=== PATIENT | male | born 1965 | race Caucasian/White ===

== ENCOUNTER 2017-01-30 08:35 | Emergency (ER) | payer OTHER ==
[~2017-01-30] VITALS: Ht 170.2 cm; Wt 84.8 kg
--- NOTE | 2017-01-30 08:50 | ED UPPER/LOWER EXTREMITY COMPL ---
History of Present Illness General Chief Complaint: Lower Extremity Problems Stated Complaint: R KNEE PAIN, WORK INJURY Source: patient Exam Limitations: no limitations Vital Signs & Intake/Output Vital Signs & Intake/Output Vital Signs Date Time Temp Pulse Resp B/P Pulse O2 O2 Flow FiO2 Ox Delivery Rate 01/30 0857 98 Room Air 01/30 0839 97.0 73 20 119/81 97 Room Air Allergies Coded Allergies: NO KNOWN ALLERGIES (01/05/16) Triage Note: PT TWISTED RIGHT KNEE WHILE KNEELING DOWN AT WORK Triage Nurses Notes Reviewed? yes Onset: Abrupt Duration: constant Timing: single episode today Severity: mild Severity Numbers: 1 HPI: Patient is a 51-year-old male who presents emergency and that while working today he was in the knee bent position on a incline and he'll where he twisted his body where he suddenly complained of sharp stabbing severe right lateral knee pain. Patient did not hear an audible "pop". Denies any direct trauma or fall. Denies any history of right knee pain. No medications given prior to arrival. Patient states that the knee pain has significantly improved and now is complaining of one out of 10 right knee pain. Patient states that deep knee bends and ambulation make worse. Past History Travel History Traveled to [place] past 21 day No Medical History Any Pertinent Medical History? see below for history Gastrointestinal: GERD Surgical History Surgical History: non-contributory Psychosocial History What is your primary language Upper Sorbian Tobacco Use: Quit >30 days ago ETOH Use: occasional use Illicit Drug Use: denies illicit drug use Family History Hx Contributory? No Review of Systems Review of Systems Constitutional: Reports: no symptoms. EENTM: Reports: no symptoms. Respiratory: Reports: no symptoms. Cardiovascular: Reports: no symptoms. Gastrointestinal/Abdominal: Reports: no symptoms. Genitourinary: Reports: no symptoms. Musculoskeletal: Reports: see HPI, joint pain. Skin: Reports: no symptoms. Neurological/Psychological: Reports: no symptoms. Hematologic/Endocrine: Reports: no symptoms. Immunological: Reports: no symptoms. All Other Systems: Reviewed and Negative Physical Exam Physical Exam General Appearance: no apparent distress, alert, comfortable Neurologic/Tendon: normal sensation, normal motor functions, normal tendon functions, responds to pain, no evidence tendon injury Comments: Well-developed well-nourished no apparent distress. HEENT: Atraumatic, extraocular motion intact Neck: Supple, no lymphadenopathy Back: Nontender Respiratory: No respiratory distress Extremities: Right hip nontender full active range of motion Right knee normal inspection lateral meniscal WINDOW AND joint line point tenderness full active range of motion full resisted range of motion noted with flexion and extension. Negative valgus stress test negative varus stress test negative anterior drawer test negative posterior drawer test Right ankle nontender normal inspection Right lower extremity dermatomes intact pedal pulse +2 Neuro: Alert and oriented x3 Psych: Mood affect normal, normal memory normal judgment. Progress Differential Diagnosis: arterial insufficiency, compartment syndrome, contusion, dislocation, DVT, fracture, gout, septic arthritis, sprain, tendon injury Plan of Care: Orders Procedure Date/time Status XRY-KNEE COMPLETE RIGHT 01/31 856 Active Patient declined pain medications when offered Patient had normal steady gait on discharge. No osseous injury noted from acute findings on x-rays. Patient was strongly advised to follow up with orthopedic doctor. Patient had no laxity on ligamentous stress test exam (GHANSHYAM CHAVEZ,ALISON) Diagnostic Imaging: Viewed by Me: Radiology Read. Radiology Impression: no acute abnormality Comments: PATIENT: SAMUEL HAY PRESENT AGE: 51 PATIENT ACCOUNT NO: [id number] : 67 LOCATION: [facility] ORDERING PHYSICIAN: ALISON CHAVEZ SERVICE DATE: 01/30/17 EXAM TYPE: RAD - XRY-KNEE COMPLETE RIGHT EXAMINATION: XR KNEE, RIGHT CLINICAL INFORMATION: Right knee pain. COMPARISON: Right knee 11/02/2008 TECHNIQUE: Four views of the right knee. FINDINGS: There is no visible acute fracture, dislocation or bony erosive changes. There is mild lateral the talar spurring. The tricompartment joint space is maintained. There are no loose bodies or suprapatellar joint effusion. IMPRESSION: Small lateral patellar spur probably from previous injury or early degenerative changes. No visible acute fracture, dislocation or loose bodies seen. Departure Departure Disposition: HOME OR SELF CARE Condition: Stable Clinical Impression Primary Impression: Right knee pain Referrals: MAGO CAVANAUGH,VICTORINO HO MD,MARIANO Bowman (PCP/Family) Additional Instructions: As discussed begin icing the area directly 20 minutes every 2 hours. Begin over -the-counter ibuprofen if needed for pain and inflammation. If no better in one week follow-up with orthopedic Victorino Kenney MD. If symptoms worsen return to emergency room Departure Forms: Customer Survey Employee Industrial Accident General Discharge Information
--- NOTE | 2017-01-30 09:39 | RADIOLOGY REPORT ---
EXAMINATION: XR KNEE, RIGHT CLINICAL INFORMATION: Right knee pain. COMPARISON: Right knee 11/02/2008 TECHNIQUE: Four views of the right knee. FINDINGS: There is no visible acute fracture, dislocation or bony erosive changes. There is mild lateral the talar spurring. The tricompartment joint space is maintained. There are no loose bodies or suprapatellar joint effusion. IMPRESSION: Small lateral patellar spur probably from previous injury or early degenerative changes. No visible acute fracture, dislocation or loose bodies seen.
[2017-01-30 10:00] VITALS: BP 126/78
== END 2017-01-30 10:01 ==
LOC: ERH 08:35
DX: M25.561 Pain in right knee (principal); X50.9XXA Other and unspecified overexertion or strenuous movements or postures, initial encounter; Y93.89 Activity, other specified; Y92.89 Other specified places as the place of occurrence of the external cause
CPT/HCPCS: 73562-RT

== ENCOUNTER 2017-03-16 16:17 | Emergency (ER) | payer OTHER ==
[~2017-03-16] VITALS: Ht 172.7 cm; Wt 83.9 kg
[2017-03-16 16:21] VITALS: BP 125/78
[2017-03-16] MEDS ORDERED: IBUPROFEN600 M1 PO (16:49)
--- NOTE | 2017-03-16 16:49 | ED CARDIAC/CP/PALPITATIONS ---
History of Present Illness General Chief Complaint: Trunk Injury Stated Complaint: FALL 2 DAYS AGO, LEFT SIDED RIB PAIN Source: patient, family, old records Exam Limitations: no limitations Vital Signs & Intake/Output Vital Signs & Intake/Output Vital Signs Date Time Temp Pulse Resp B/P B/P Pulse O2 O2 Flow FiO2 Mean Ox Delivery Rate 03/16 1621 97.9 69 18 125/78 96 Room Air Allergies Coded Allergies: NO KNOWN ALLERGIES (01/05/16) Reconcile Medications Ibuprofen 600 MG TABLET 1 TAB PO TID PRN PAIN with food Triage Note: PT TO TRIAGE WITH C/O LEFT SIDED RIB CAGE PAIN 6/10 INCREASING WITH DEEP INSPIRATIONS AND COUGHING S/P TRIPPED AND FELL ON LEFT SIDE 2 DAYS AGO. PT DENIES HEADSTRIKE. VSS. Triage Nurses Notes Reviewed? yes HPI: On Friday patient had a mechanical fall and fell on the left side of his ribs. Patient denies any other injury. Patient denies hitting his head and there was no loss of consciousness. Since the fall he's been having a sharp stabbing pain to his left lateral rib cage that increases with inspiration. He denies any shortness of breath or dyspnea on exertion. There is no radiation of the pain. At its worse the pain is 7 out of 10. There no fevers or chills. There is no coughing. Past History Travel History Traveled to [place] past 21 day No Medical History Any Pertinent Medical History? see below for history Gastrointestinal: GERD Surgical History Surgical History: non-contributory Psychosocial History What is your primary language Czech Tobacco Use: Never used Family History Hx Contributory? No Review of Systems Review of Systems Constitutional: Reports: no symptoms. EENTM: Reports: no symptoms. Respiratory: Reports: no symptoms. Cardiovascular: Reports: see HPI, chest pain. GI: Reports: no symptoms. Musculoskeletal: Reports: no symptoms. Neurological/Psychological: Reports: no symptoms. Immunologic/Allergic: Reports: no symptoms. Physical Exam Physical Exam General Appearance: well developed/nourished, alert, awake Head: atraumatic, normal appearance Eyes: Bilateral: PERRL, EOMI. Ears, Nose, Throat: normal pharynx, normal ENT inspection, hearing grossly normal Neck: normal inspection, supple, full range of motion Respiratory: normal breath sounds, no respiratory distress, lungs clear, TENDER TO PALPATION LEFT LATERAL LOWER RIBCAGE Cardiovascular: regular rate/rhythm, normal peripheral pulses Gastrointestinal: normal bowel sounds, soft, non-tender, no organomegaly, NO ECCHYMOSIS, NO LUQ PAIN Back: normal inspection, normal range of motion, NO CVA TENDERNESS Extremities: normal inspection, normal capillary refill, normal range of motion, no edema Neurologic/Psych: no motor/sensory deficits, awake, alert, oriented x 3, normal gait, normal mood/affect Skin: intact, normal color, warm/dry Lymphatic: no anterior cervical weston Core Measures ACS in differential dx? No Severe Sepsis Present: No Septic Shock Present: No Progress Differential Diagnosis: costochondritis, RIB INJURY Plan of Care: Orders Procedure Date/time Status XRY-RIBS UNILATERAL-LEFT 03/16 1623 Active Diagnostic Imaging: Viewed by Me: Radiology Read. Discussed w/RAD: Radiology Read. CXR Impression: PATIENT: SAMUEL HAY PRESENT AGE: 51 PATIENT ACCOUNT NO: [id number] : 69 LOCATION: [facility] ORDERING PHYSICIAN: DURAN BARBOUR MD SERVICE DATE: 03/16/17-1622 EXAM TYPE: RAD - XRY-RIBS UNILATERAL-LEFT EXAMINATION: XR RIBS, LEFT CLINICAL INFORMATION: Fall. Pain. COMPARISON: Chest radiography 04/27/2007. TECHNIQUE: Frontal view of the chest and 3 views of the left ribs were obtained. FINDINGS: The lungs are well expanded and clear. No pneumothorax or evidence of hemothorax. No mediastinal widening. No discrete rib fracture demonstrated. IMPRESSION: No rib fracture or acute thoracic pathology demonstrated. DICTATED BY: HERMLEINDA BENZ MD DATE/TIME DICTATED:03/16/171640 BI TESTER:ALLEGRA DATE/TIME TRANSCRIBED:1640 CONFIDENTIAL, DO NOT COPY WITHOUT APPROPRIATE AUTHORIZATION. < Electronically signed in Other Vendor System> SIGNED BY: HERMELINDA BENZ MD 03/16/171646 Initial ED EKG: none Departure Departure Disposition: HOME OR SELF CARE Condition: Stable Clinical Impression Primary Impression: Rib injury Referrals: MARIANO HO MD (PCP/Family) Additional Instructions: USE INCENTIVE SPIROMETER 6 TIMES A DAY WHILE AWAKE RETURN IF SYMPTOMS WORSEN, YOU DEVELOP DIFFICULTY BREATHING, PRODUCTIVE COUGH, FEVERS OR FOR ANY CONCERNS Departure Forms: Customer Survey General Discharge Information Prescriptions: Current Visit Scripts Ibuprofen 1 TAB PO TID PRN PAIN #20 TAB with food Critical Care Note Critical Care Note Critical Care Time: non-applicable
== END 2017-03-16 16:58 ==
LOC: ERH 16:17
DX: S29.9XXA Unspecified injury of thorax, initial encounter (principal); W19.XXXA Unspecified fall, initial encounter; Y92.9 Unspecified place or not applicable; Y93.9 Activity, unspecified
CPT/HCPCS: 71100-LT